=== PATIENT | male | born 1995 | race Two or more races ===

== ENCOUNTER 2022-05-06 19:40 | Emergency (ER) | payer SELFPAY ==
[~2022-05-06] VITALS: Ht 160 cm; Wt 63.5 kg
[2022-05-06 19:40] VITALS: BP 141/87
--- NOTE | 2022-05-06 19:40 | NUR ---
TO BED AMBULATORY, MARI FROM [facility] FOR OVERDOSE ON METH, NARCAN 4 MG IM WAS GIVEN ENROUTE
[2022-05-06] MEDS ORDERED: KETOROLAC 60 MG/2 ML VIAL IM ONE (20:50)
[2022-05-06] MEDS ORDERED: IBUP-2213 PO (21:03)
[2022-05-06 21:50] VITALS: BP 130/82
== END 2022-05-06 21:50 | disposition home or self-care (01) ==
LOC: MED 19:40
DX: R07.89 Other chest pain (principal); T43.621A Poisoning by amphetamines, accidental (unintentional), initial encounter; F17.200 Nicotine dependence, unspecified, uncomplicated; Y92.89 Other specified places as the place of occurrence of the external cause
CPT/HCPCS: 96372; 99283; J1885

== ENCOUNTER 2022-07-12 21:05 | Emergency (ER) | payer SELFPAY ==
[~2022-07-12] VITALS: Ht 165.1 cm; Wt 69.9 kg
[~2022-07-12 21:05] MED LIST: IBUP-2213 PO
[2022-07-12 21:56] VITALS: BP 128/71
--- NOTE | 2022-07-13 00:14 | NUR ---
PT TAKEN TO BED 12
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
--- NOTE | 2022-07-13 00:47 | NUR ---
Dr. Mcleod examining patient.
[2022-07-13] MEDS ORDERED: cefTRIAXone 1,000 MG in DEXT 5% MINI-BAG PLUS 50 ML IV ONE (00:50)
[2022-07-13] MEDS ORDERED: MORPHINE SULFATE 4 MG/ML SYR IVP ONE (00:50)
[2022-07-13] MEDS ORDERED: NACL 0.9% 1,000 ML IV SCH (00:50)
--- NOTE | 2022-07-13 01:04 | NUR ---
LAB AT BEDSIDE
[2022-07-13] MEDS ORDERED: cefTRIAXone 1,000 MG VIAL ONE (01:08)
[2022-07-13 01:09] LABS: BASOPHILS % (AUTO) 0.5 % (0.0-2.0); EOSINOPHILS # (AUTO) 0.2 K/uL (0-0.4); HEMATOCRIT 36.5 % (36-52); HEMOGLOBIN 12.1 g/dL (12.0-18.0); LYMPHOCYTES # (AUTO) 2.2 K/uL (2.0-11.5); LYMPHOCYTES % (AUTO) 28.5 % (20.5-51.1); MEAN CORPUSCULAR HEMOGLOBIN 30 pg (27-31); MEAN CORPUSCULAR HGB CONC 33 g/dL (33-37); MEAN CORPUSCULAR VOLUME 91.2 fL (80-94); MONOCYTES # (AUTO) 0.7 K/uL (0.8-1.0); MONOCYTES % (AUTO) 9.5 % (1.7-9.3); NEUTROPHILS # (AUTO) 4.6 K/uL (1.8-7.7); NEUTROPHILS % (AUTO) 59.5 % (42.2-75.2); PLATELET COUNT (AUTO) 258 K/uL (140-450); RED CELL DISTRIBUTION WIDTH 15.1 % (11.6-13.7); WHITE BLOOD COUNT (AUTO) 7.8 K/uL (4.8-10.8)
[2022-07-13 01:24] LABS: ALBUMIN 3.3 g/dL (3.4-5.0); ANION GAP 10.5 (8-16); CARBON DIOXIDE 30.2 mmol/L (21-32); CHLORIDE 104 mmol/L (98-107); CREATININE 0.7 mg/dL (0.6-1.3); GFR ARICAN-AMERICAN 175 mL/min (>90); GLUCOSE 98 mg/dL (74-106); POTASSIUM 3.7 mmol/L (3.5-5.1); SODIUM SERUM 141 mmol/L (136-145); TOTAL BILIRUBIN 0.3 mg/dL (0.0-1.0); UREA NITROGEN, BLOOD 25 mg/dL (7-18)
--- NOTE | 2022-07-13 01:59 | NUR ---
provided pt with food per request.
[2022-07-13 02:34] VITALS: BP 114/76
--- NOTE | 2022-07-13 03:05 | NUR ---
called [facility] and gave report to Espinoza BARBOSA. pt will be transferred ER to ER under the care of Uli Son for reason of Right 3rd digit infection. ambulance ETA is [phone]. # for report was [phone]
--- NOTE | 2022-07-13 04:03 | NUR ---
[facility] TRANSPORT AT BEDSIDE
--- NOTE | 2022-07-13 04:08 | NUR ---
[id number] arrived to ER. report given to Kaushik BARBOSA. pt will be transported to [facility] ER to ER.
== END 2022-07-13 04:08 | disposition short-term general hospital (02) ==
LOC: MED 21:05
DX: L08.9 Local infection of the skin and subcutaneous tissue, unspecified (principal); Z20.822 Contact with and (suspected) exposure to COVID-19; Z79.1 Long term (current) use of non-steroidal anti-inflammatories (NSAID)
CPT/HCPCS: 36415; 73130; 80053; 83605; 85025; 87040; 87426; 96365; 96375; 99285; J0696; J2270; J7030; Q0092

== ENCOUNTER 2024-01-05 18:54 | Emergency (ER) | payer SELFPAY ==
[~2024-01-05] VITALS: Ht 165.1 cm; Wt 59.0 kg
[2024-01-05 19:00] VITALS: BP 128/56; PULSE 84; RESP 18; TEMP 98.2; O2SAT 99
== END 2024-01-05 20:29 | disposition left against medical advice (07) ==
LOC: MED 18:54
DX: S09.90XA Unspecified injury of head, initial encounter (principal); Z02.89 Encounter for other administrative examinations; I10 Essential (primary) hypertension; Z79.899 Other long term (current) drug therapy; W22.8XXA Striking against or struck by other objects, initial encounter; Y92.89 Other specified places as the place of occurrence of the external cause; Y93.89 Activity, other specified; Y99.8 Other external cause status
CPT/HCPCS: 99283